=== PATIENT | female | born 1985 | race Caucasian/White ===

== ENCOUNTER → 2022-10-09 09:00 | Outpatient (BNVA) | payer MEDICARE, SELFPAY | PROVIDERS: PCP Nurse Practitioner Family; Visit Provider Nurse Practitioner Family | DX: G43.119 Migraine with aura, intractable, without status migrainosus (principal); G43.109 Migraine with aura, not intractable, without status migrainosus; G47.19 Other hypersomnia; G47.9 Sleep disorder, unspecified; M54.81 Occipital neuralgia | CPT/HCPCS: 99202 ==

== ENCOUNTER 2024-10-14 10:21 | Outpatient (AMB) | payer MEDICARE, SELFPAY ==
--- NOTE | 2024-10-14 10:26 | MHC.OFFVIS ---
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 Intake Note: Fany is a 38 year old left hand dominant female who presents today as a new patient for evaluation of bilateral hand carpal tunnel syndrome. Right hand is worse and is constant. Patient reports numbness and tingling that occurs daily. 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 States at times she has pain at her CMC joint especially when opening a seal jar. Patient states pain is worse in the morning and at night. She [facility] braces, [facility] with good pain relief. Denies any prior injuries or surgeries. EMG done at [facility] 02/01/24. 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 Patient reports that this has been ongoing for several years, and states that she received sections and braces at [facility]. patient did also have an EMG and nerve conduction study done at [facility]. The patient reports that she was seeking a 2nd opinion for h any potential surgery. States that her numbness and tingling is in the median nerve distribution of both hands, and the right bothers her significantly more than the left. No other acute complaints or concerns at this time. [facility] Medical History (Updated 10/14/24 @ 13:10 by RIZWAN Nettles) PAOD (peripheral arterial occlusive disease) Hip dysplasia Arthritis Family history of sleep apnea HTN (hypertension) Bilateral hip dysplasia Surgical History (Updated 10/14/24 @ 10:33 by [facility] H/O arthroscopy of hip History of hip surgery Family History (System 07/03/23 @ 15:00 by Neema Lebron) Father Hypertension Heart disease Mother Migraines Hypertension Sister Migraines Maternal Grandmother Migraines Paternal Grandmother Migraines Social History (Updated 10/14/24 @ 10:33 by ARIANNE Aguilar) Alcohol intake: current Alcohol intake frequency: a few times a month Patient Tobacco Use Status: Never used Tobacco Current occupational status: disabled 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 Good APB muscle firing and good finger cross. Vascular: Capillary refill brisk. ROM: Patient can make a fist and extend all their digits. Skin: No lacerations or abrasions noted. General: No ecchymosis. No erythema or evidence of infection. [] Results Reviewed Results Reviewed: EMG done at [facility] demonstrates mild right and moderate left median neuropathy consistent with carpal tunnel Assessment & Plan Assessment & Plan (1) Bilateral carpal tunnel syndrome: Code(s): G56.03 - Carpal tunnel syndrome, bilateral upper limbs Category: Medical Plan 1. Carpal tunnel syndrome, right Symptoms intermittent, daily, worse at night I educated the patient about the condition. I discussed both operative and nonoperative treatment options. The patient would like to proceed with surgery. The risks and benefits of operative treatment were discussed with the patient and the patient wishes to proceed with surgery. These risks include, but are not limited to, risk of damage to blood vessels, nerves, tendons, infection, recurrence, incomplete relief of preoperative symptoms, persistent pain, possible need for further surgery, and the risks associated with regional blocks and/or anesthesia. Plan is to take the patient to the operating room at some point in the next few weeks for the following procedures: Right carpal tunnel release under local anesthesia All of the preoperative paperwork including the consent was discussed today. All of the patient's questions were answered in the clinic today. The patient understands that they will be in contact with our surgical garment assembler to discuss scheduling their procedure. Patient denies diabetes, blood thinners, asthma, heart issues, lung issues, kidney issues, or current smoking. 2. Carpal tunnel syndrome, left Symptoms intermittent daily, worse at night Patient would like to proceed with operative intervention of the right prior to any intervention of the left Patient is educated that time we can get signed up for left-sided surgery at her postop visit on the right side if it was recovering well Patient was amenable to this plan, state however that she will probably hold off for few weeks in after her neck surgery Patient will follow-up as needed with any acute concerns Medications: Discontinued zolmitriptan max 2 tabs per day or 4 tabs per week Discontinued Reason: No Longer Medically Relevant 5 mg PO Q2H 21 days PRN 12 tabs 3RF migraine headache onabotulinumtoxinA (Botox) inject 155 units IM across forehead, scalp, and neck Discontinued Reason: No Longer Medically Relevant 200 units IM ONCE 12 weeks 1 ea 3RF G43.709 - Chronic migraine without aura, not intractable, without status migrainosus Coding Level of Care Code New Pt Level 4 (48644) Diagnoses Bilateral carpal tunnel syndrome G56.03
[2024-10-14 10:27] VITALS: BMI 31.6
== END 2024-10-14 10:54 | disposition home or self-care (01) ==
PROVIDERS: PCP Nurse Practitioner Family
DX: G56.03 Carpal tunnel syndrome, bilateral upper limbs (principal)
CPT/HCPCS: 99204

== ENCOUNTER → 2024-10-14 10:21 | Outpatient (BNVA) | payer MEDICARE, SELFPAY | PROVIDERS: PCP Nurse Practitioner Family | DX: G56.03 Carpal tunnel syndrome, bilateral upper limbs (principal) | CPT/HCPCS: 99202 ==

== ENCOUNTER 2025-01-09 07:11 | Day surgery (SDC) | payer MEDICARE, SELFPAY ==
[2025-01-09 07:28] VITALS: BMI 31.6
[2025-01-09 07:31] VITALS: BP 147/81; PULSE 76; RESP 16; TEMP 36.8; O2SAT 99
--- NOTE | 2025-01-09 07:54 | MHC.SHP ---
Pre-Procedural Eval Section A - 24 Hr Update-Section A only Date of Service: 01/09/25 The patient is an INPATIENT: No Changes since office visit: No Cold of Flu in the past 2 weeks, No New Medical Problems, No Changes in Medication and No Patient answered all questions The patient has been examined within 24 hours of the surgical procedure. The History & Physical has been completed within 30 days and I have reviewed it.: Yes Section B - Complete if H&P > 30 days Chief Complaint: Carpal tunnel syndrome, right upper limb Allergies: Allergies Allergy/AdvReac Type Severity Reaction Status Date / Time acetaminophen [From Percocet] Allergy Unknown Itching Verified 01/09/25 07:28 adhesive Allergy Unknown Rash Verified 01/09/25 07:28 hydromorphone Allergy Unknown Rash Verified 01/09/25 07:28 nortriptyline Allergy Unknown Unknown Verified 01/09/25 07:28 oxycodone [From Percocet] Allergy Unknown Itching Verified 01/09/25 07:28 topiramate AdvReac Unknown Rash Verified 01/09/25 07:28 Plan Diagnosis/Plan: Unchanged I have reviewed the history and physical and performed a pertinent physical examination on my patient. No changes have occurred unless specified. Time Spent With Patient Time: Total time managing care of this patient today ____ minutes.
--- NOTE | 2025-01-09 07:54 | W.PM.OPN ---
Operative Note Operative Note Date of Service: 01/09/25 Narrative: Preop diagnosis: 1. Right Carpal tunnel syndrome Postop diagnosis: same Procedure: 1. Right Carpal tunnel release Surgeon: Tomasa Etienne MD [employer] Field: None Anesthesia: local block using 1% lidocaine with epinephrine Findings: Thickened transverse carpal ligament. EBL: Less than 5 mL Specimens: None Complications: None Disposition: Brought to recovery room in stable condition Plan: Follow-up for 10-14 days for wound check and suture removal Indications: The patient is 39 years old, with right carpal tunnel syndrome that has been unresponsive to nonoperative management. The risks and benefits of operative treatment including but not limited to risk of damage to blood vessels, nerves, tendons, infection, persistent pain, persistent symptoms, or possible need for additional surgery were discussed with the patient and the patient wishes to proceed with surgery. Procedure: Once consent was obtained a local block was performed using a combination of 1% lidocaine with epinephrine. The patient was then brought back to the operating suite and placed on the operative table in supine position. The right upper extremity was prepped and draped in a standard surgical fashion. Once assured that we had a good block, a 2.0 cm longitudinal incision was made centered over the carpal tunnel. The incision was made through the skin to the subcutaneous tissues using a #15 blade. Dissection was made down to the level of the transverse carpal ligament with care being taken to protect the palmar cutaneous nerve. Once the transverse carpal ligament was clearly visualized, a longitudinal incision was made in the transverse carpal ligament 1st using a #15 blade, then using tenotomy scissors under direct visualization. Care was taken to look for and protect the motor branch of the median nerve when seen in this area. Once satisfied with our carpal tunnel release the wound was copiously irrigated with normal saline and hemostasis was obtained with a brief period of local pressure. The skin edges were reapproximated with some 5.0 nylon suture material and a sterile dressing was applied. The patient appears to have tolerated the procedure well and with no complications. All digits were well vascularized at the conclusion of the case.
--- NOTE | 2025-01-09 09:36 | HO.INF ---
DC VITAL SIGNS: P 69m R 20, BP 124/71, 99% RA. PT GIVEN DC INSTRUCTIONS. PATIENT WITHOUT ISSUES OR PROBLEMS.
== END 2025-01-09 09:30 | disposition home or self-care (01) ==
PROVIDERS: PCP Nurse Practitioner Family; Visit Provider Orthopaedic Surgery
PROC: (CPT 64721; principal; 2025-01-09 08:10)
DX: G56.01 Carpal tunnel syndrome, right upper limb (principal); R20.0 Anesthesia of skin; R20.2 Paresthesia of skin; M18.11 Unilateral primary osteoarthritis of first carpometacarpal joint, right hand; I77.9 Disorder of arteries and arterioles, unspecified; Q65.89 Other specified congenital deformities of hip; G43.709 Chronic migraine without aura, not intractable, without status migrainosus; I10 Essential (primary) hypertension; L23.1 Allergic contact dermatitis due to adhesives; Z88.5 Allergy status to narcotic agent; Z88.8 Allergy status to other drugs, medicaments and biological substances; Z98.890 Other specified postprocedural states
CPT/HCPCS: 64721; J0171; J2003

== ENCOUNTER → 2025-01-09 07:11 | Outpatient (BNV) | payer MEDICARE, SELFPAY | PROVIDERS: PCP Nurse Practitioner Family; Visit Provider Orthopaedic Surgery | DX: G56.01 Carpal tunnel syndrome, right upper limb (principal) | CPT/HCPCS: 64721 ==

== ENCOUNTER 2025-01-23 12:54 | Outpatient (AMB) | payer MEDICARE, SELFPAY ==
[2025-01-23 12:57] VITALS: BMI 31.6
--- NOTE | 2025-01-23 12:57 | A.OFFVIS_ITS ---
Vital Signs 01/23/25 12:57 Height 5 ft 5 in Weight 190 lb BMI 31.6 Intake Visit Reasons: PO RT CTR 01/09/25 AR Intake Note: Fany is a 38 year old left hand dominant female who presents today for a post operative visit s/p right carpal tunnel release DOS: 01/09/[address] Tomasa Etienne. States sypmtoms have completely resolved and would like to sign up for left hand CTR. Allergies acetaminophen [From Percocet] Allergy (Unknown, Verified 01/23/25 13:05) Itching adhesive Allergy (Unknown, Verified 01/23/25 13:05) Rash hydromorphone Allergy (Unknown, Verified 01/23/25 13:05) Rash nortriptyline Allergy (Unknown, Verified 01/23/25 13:05) Unknown oxycodone [From Percocet] Allergy (Unknown, Verified 01/23/25 13:05) Itching topiramate Adverse Reaction (Unknown, Verified 01/23/25 13:05) Rash HPI HPI PO RT CTR 01/09/25 AR: Details: Fany is a 38 year old left hand dominant female who presents today for a post operative visit s/p right carpal tunnel release DOS: 01/09/[address] Tomasa Etienne. Numbness, tingling, pain have completely resolved from right carpal tunnel release, patient reports she is very satisfied with her postoperative course. Patient states she is interested in getting signed up for left-sided carpal tunnel release at this time. No other acute complaints or concerns. [facility] Medical History (Updated 10/14/24 @ 13:10 by RIZWAN Nettles) PAOD (peripheral arterial occlusive disease) Hip dysplasia Arthritis Family history of sleep apnea HTN (hypertension) Bilateral hip dysplasia Surgical History H/O arthroscopy of hip History of hip surgery Family History (System 07/03/23 @ 15:00 by Neema Lebron) Father Hypertension Heart disease Mother Migraines Hypertension Sister Migraines Maternal Grandmother Migraines Paternal Grandmother Migraines Social History Alcohol intake: current Alcohol intake frequency: a few times a month Patient Tobacco Use Status: Never used Tobacco Current occupational status: disabled 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 Good APB muscle firing and good finger cross. Vascular: Capillary refill brisk. ROM: Patient can make a fist and extend all their digits. Skin: Well approximated and healing incision site noted on the volar aspect of the right wrist No lacerations or abrasions noted. General: No ecchymosis. No erythema or evidence of infection. Results Reviewed Results Reviewed: EMG done at [facility] demonstrates mild right and moderate left median neuropathy consistent with carpal tunnel Assessment & Plan Assessment & Plan (1) Bilateral carpal tunnel syndrome: Code(s): G56.03 - Carpal tunnel syndrome, bilateral upper limbs Category: Medical Plan 1. Status post right carpal tunnel release DOS 01/09/2025 Patient appears to be recovering very well postoperatively Patient is educated about the typical recovery course At this time, patient was informed that she will require no acute follow-up with us, as she appears to be recovering very well Patient was amenable to this plan 2. Left carpal tunnel syndrome Symptoms intermittent, daily, worse at night I educated the patient about the condition. I discussed both operative and nonoperative treatment options. The patient would like to proceed with surgery. \ The risks and benefits of operative treatment were discussed with the patient and the patient wishes to proceed with surgery. These risks include, but are not limited to, risk of damage to blood vessels, nerves, tendons, infection, recurrence, incomplete relief of preoperative symptoms, persistent pain, possible need for further surgery, and the risks associated with regional blocks and/or anesthesia. Plan is to take the patient to the operating room at some point in the next few weeks for the following procedures: 1. Left carpal tunnel release under local anesthesia All of the preoperative paperwork including the consent was discussed today. All of the patient's questions were answered in the clinic today. The patient understands that they will be in contact with our assistant professor surgical technology to discuss scheduling their procedure. Patient denies diabetes, blood thinners, asthma, heart issues, lung issues, kidney issues, or current smoking. Coding Level of Care Code Est Pt Level 4 (94037) Diagnoses Bilateral carpal tunnel syndrome G56.03
--- OUTSIDE RECORDS SUMMARY | 2025-01-23 15:18 | XMS_ITS | Data Portability ---
Author Organization [place] - [facility], [facility] Address [address] [place] [address] Assessment Encounter Date Assessment Date Assessment LastModified by Organization Details LastModified Time 01/28/2018 01/28/2018 IMPRESSION: Base d on her clinical examination and history, she likely has a component of hamstring tendinitis after multiple previous hip surgeries. Her pain presentation seems to be extraarticular primarily. She has some mild pain anteriorly with FADIR testing, which could be client service representative of some labral pathology but that seems to be only a minor issue for her. PLAN: I would like her to see Dr. Calvin Berger again for an image-guided hamstring injection. We also provided her with contact information for Dr. Jian Soliman should she need further follow up regarding her hip after her previous GLORIA. She will follow up with us as needed. [email or web address] Not available 02/01/2018 18:36:56 Plan of Treatment Reminders Order Date Submit Date Provider Last Modified By Organization Details Last Modified Time Details Appointments None record ed. Lab None record ed. Referral None record ed. Procedures None record ed. Surgeries None record ed. Imaging None record ed. Medication Orders None record ed. Patient TargetsNo targets recorded. Patient InstructionsNo instructions recorded. Reason for Referral None Reported. Procedures Surgical History Date Name Laterality Status Provider Name and Address Organization Details Recorded Time 8 Other completed Kirk Ruiz [facility] 01/28/2018 14:01:37 6 Orthopaedic Surgery completed Kirk Ruiz [facility] 01/28/2018 14:01:18 5 Orthopaedic Surgery completed Kirk Ruiz [facility] 01/28/2018 14:00:47 2 Orthopaedic Surgery completed Kirk Ruiz [facility] 01/28/2018 14:00:32 Imaging Results None recorded. Procedure Notes None recorded. Medical Equipment None Reported. Allergies Allergen ID Allergen Name Allergen Category Reaction Reaction Severity Criticality Documentation Date Start Date Code Code System Note Provider Name and Address Organization Details Recorded Time 548930 Topamax medicatio n Not available Not available Not available 01/28/2018 79110 3 RxNorm Kirk manzo [facility] 8 13:58:11 Medications Name Sig Start Date Stop Date Status Note LastModified by Organization Details LastModified Time propranolol active Not Available Not A vailable Not Available Imitrex active Not Available Not Avail able Not Available Claritin active Not Available Not Avai lable Not Available Vitals Date Recorded Body height Body mass index (BMI) Body weight Provider Name and Address Organization Details Last Updated DateTime 01/28/2018 165.1 cm 32.4 kg/m2 39432.51 g Kirk Ruiz [facility] 01/28/2018 13:57:55 Social History Question Answer Notes LastModified by Organizat ion Details LastModified Time Tobacco Smoking Status Never Smoker Kirk manzo [facility] 01/28/2018 14:00:12 Auto Related Injury? No Information not available 01/28/2018 Have You Had Cortisone? Yes Information not available 01/28/2018 What Was The Date Of Your Most Recent Tobacco Screening? 01/28/2018 Information n ot available 04/21/2019 Work Related Injury? No Information not available 01/28/2018 Sex: Unknown Functional Status Question Answer Note LastModified by Organizat ion Details LastModified Time What is your exercise level? Occasional Information not available 01/28/2018 Mental Status None recorded. Family History Nothing Reported. Medical History Condition Response Blood Clots / Phlebitis N Heart Problems N HIV or AIDS N Depression or Anxiety N High Blood Pressure N Irregular Heartbeat N MRSA N Emphysema / Chronic Bronchitis N Any Other Significant Medical Issues N Reaction to General/Local Anesthesia N Weight Gain / Loss N Hepatitis / Jaundice N Kidney / Bladder Infections N Diabetes N Bleeding Disorder N Hearing Loss N Angina, Heart Failure or Attack N Night Sweats N Seizures / Epilepsy N Osteoarthritis / Rheumatoid arthritis / Other N Cancer N Stroke N Chemical Dependency / Alcoholism N Ulcer / Stomach Bleeding / Indigestion N Visual Loss or Glaucoma N Psoriasis / Skin Rash N Thyroid Disorder N Heart Disease N Asthma / Shortness of Breath / Sleep Engraver Ornamental Design ea (please specify) N Pulmonary Embolism N Gynecological HistoryNo gynecological history recorded. Obstetrics History GPAL:G 0 P 0 0 0 0 Past Encounters Encounter ID Performer Location Encounter Start Date Encounter Closed Date Diagnosis/Indication Diagnosis SNOMED-CT Code Diagnosis ICD10 Code Diagnosis Note [id number] MISAEL LANDAVERDE MD [address] [phone] 01/28/2018 13:25:57 01/28/2018 14:57:49 Complete tear, hip ligament 604168772 S73.191D Health Concerns Section Related Observation LastModified by Organization Detai ls LastModified Time None Recorded Concern Status LastModified by Organization Details LastModified Time None Recorded Advance Directives Directive None Recorded Payers Encounter Date Sequence Insurance Name Policy Number Policy Fleming Covered Member ID Fleming Member ID Guarantor Name 01/28/2018 1 [place] [employer] Fany Rubin [id number] Fany Silva Rubin 01/28/2018 2 [place] [facility] Fany Silva Rubin [id number] Fany Silva Rubin Notes Date Note Type Note Provider Name and Address Organization Details Recorded Time 01/28/2018 text/html CHIEF COMPLAINT: Right posterior hip pain. HISTORY: Fany is a very pleasant 32-year-old lady presenting to our practice for another opinion regarding her right hip. She has a history of bilateral hip dysplasia She had a right hip arthroscopy with Dr. Rahul Reyes in May 2012 and then a right and subsequently a left hip arthroscopy by Dr. Richard Caro at [facility] in November 2014. This was followed by a periacetabular osteotomy in May 2016 at [facility] with [address]. Kirk King. Overall she had some improvement of her deep seated anterior groin pain and GLORIA. She currently complains primarily of posterior hip pain. She has seen Dr. Young? Donnie españa multiple times and had multiple injections periarticularly. Apparently she did not have a hamstring injection to this point. MISAEL LANDAVERDE MD [address] [place] [address], [id number], [facility] - [facility] 02/02/2018 08:09:33 OBGyn Episode No OBEpisode recorded.
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
== END 2025-01-23 13:48 | disposition home or self-care (01) ==
LOC: HO.HOS 12:55
PROVIDERS: PCP Nurse Practitioner Family
DX: G56.03 Carpal tunnel syndrome, bilateral upper limbs (principal)
CPT/HCPCS: 99214

== ENCOUNTER → 2025-01-23 12:54 | Outpatient (BNVA) | payer MEDICARE, SELFPAY | PROVIDERS: PCP Nurse Practitioner Family | DX: G56.02 Carpal tunnel syndrome, left upper limb (principal); Z48.811 Encounter for surgical aftercare following surgery on the nervous system; Z98.890 Other specified postprocedural states | CPT/HCPCS: 99212 ==

== ENCOUNTER 2025-02-16 12:29 | Day surgery (SDC) | payer MEDICARE, SELFPAY ==
[2025-02-16 12:54] VITALS: BP 142/84; PULSE 74; RESP 14; TEMP 36.8; O2SAT 95; BMI 33.0
--- NOTE | 2025-02-16 14:49 | MHC.SHP ---
Pre-Procedural Eval Section A - 24 Hr Update-Section A only Date of Service: 02/16/25 The patient is an INPATIENT: No Changes since office visit: No Cold of Flu in the past 2 weeks, No New Medical Problems, No Changes in Medication and No Patient answered all questions The patient has been examined within 24 hours of the surgical procedure. The History & Physical has been completed within 30 days and I have reviewed it.: Yes Section B - Complete if H&P > 30 days Chief Complaint: Carpal tunnel syndrome, left upper limb Allergies: Allergies Allergy/AdvReac Type Severity Reaction Status Date / Time acetaminophen [From Percocet] Allergy Unknown Itching Verified 02/16/25 12:53 adhesive Allergy Unknown Rash Verified 02/16/25 12:53 hydromorphone Allergy Unknown Rash Verified 02/16/25 12:53 nortriptyline Allergy Unknown Unknown Verified 02/16/25 12:53 oxycodone [From Percocet] Allergy Unknown Itching Verified 02/16/25 12:53 topiramate AdvReac Unknown Rash Verified 02/16/25 12:53 Plan Diagnosis/Plan: Unchanged I have reviewed the history and physical and performed a pertinent physical examination on my patient. No changes have occurred unless specified. Time Spent With Patient Time: Total time managing care of this patient today ____ minutes.
--- NOTE | 2025-02-16 14:50 | W.PM.OPN ---
Operative Note Operative Note Date of Service: 02/16/25 Narrative: Preop diagnosis: 1. Left Carpal tunnel syndrome Postop diagnosis: same Procedure: 1. Left Carpal tunnel release Surgeon: Tomasa Etienne MD Photographic Laboratory Technician: Shayan ASTORGA Anesthesia: local block using 1% lidocaine with epinephrine Findings: Thickened transverse carpal ligament. EBL: Less than 5 mL Specimens: None Complications: None Disposition: Brought to recovery room in stable condition Plan: Follow-up for 10-14 days for wound check and suture removal Indications: The patient is 39 years old, with left carpal tunnel syndrome that has been unresponsive to nonoperative management. The risks and benefits of operative treatment including but not limited to risk of damage to blood vessels, nerves, tendons, infection, persistent pain, persistent symptoms, or possible need for additional surgery were discussed with the patient and the patient wishes to proceed with surgery. Procedure: Once consent was obtained a local block was performed using a combination of 1% lidocaine with epinephrine. The patient was then brought back to the operating suite and placed on the operative table in supine position. The left upper extremity was prepped and draped in a standard surgical fashion. Once assured that we had a good block, a 2.0 cm longitudinal incision was made centered over the carpal tunnel. The incision was made through the skin to the subcutaneous tissues using a #15 blade. Dissection was made down to the level of the transverse carpal ligament with care being taken to protect the palmar cutaneous nerve. Once the transverse carpal ligament was clearly visualized, a longitudinal incision was made in the transverse carpal ligament 1st using a #15 blade, then using tenotomy scissors under direct visualization. Care was taken to look for and protect the motor branch of the median nerve when seen in this area. Once satisfied with our carpal tunnel release the wound was copiously irrigated with normal saline and hemostasis was obtained with a brief period of local pressure. The skin edges were reapproximated with some 5.0 nylon suture material and a sterile dressing was applied. The patient appears to have tolerated the procedure well and with no complications. All digits were well vascularized at the conclusion of the case.
[2025-02-16 15:12] VITALS: BP 148/88; PULSE 72; RESP 18; O2SAT 98
== END 2025-02-16 15:26 | disposition home or self-care (01) ==
LOC: HO.SSS 12:30
PROVIDERS: PCP Nurse Practitioner Family; Visit Provider Orthopaedic Surgery
PROC: (CPT 64721; principal; 2025-02-16 13:50)
DX: G56.02 Carpal tunnel syndrome, left upper limb (principal); I10 Essential (primary) hypertension; M19.90 Unspecified osteoarthritis, unspecified site; Q65.89 Other specified congenital deformities of hip; I77.9 Disorder of arteries and arterioles, unspecified; Z88.5 Allergy status to narcotic agent; Z88.8 Allergy status to other drugs, medicaments and biological substances; L23.1 Allergic contact dermatitis due to adhesives; Z98.890 Other specified postprocedural states
CPT/HCPCS: 64721; J0171; J2003; J2004

== ENCOUNTER → 2025-02-16 12:29 | Outpatient (BNV) | payer MEDICARE, SELFPAY | PROVIDERS: PCP Nurse Practitioner Family; Visit Provider Orthopaedic Surgery | DX: G56.02 Carpal tunnel syndrome, left upper limb (principal) | CPT/HCPCS: 64721 ==

== ENCOUNTER 2025-03-03 14:13 | Outpatient (AMB) | payer MEDICARE, SELFPAY ==
--- NOTE | 2025-03-03 14:14 | A.OFFVIS_ITS ---
Vital Signs 03/03/25 14:18 Height 5 ft 5 in Weight 190 lb BMI 31.6 Handedness Left Intake Visit Reasons: PO LT CTR 02/16/25 AR Intake Note: Fany is a 39 year old left hand dominant female who presents today post operatively s/p left carpal tunnel release DOS: 02/16/[address] Tomasa Etienne. Patient reports in the beginning of this week she had a fall and landed on her left hand palm. She has her right CTR done and states the incion on her left hand feels alot more tender than the right did. States Dr Etienne did inform her the tendon was a lot tighter than the right hand in surgery. Allergies acetaminophen [From Percocet] Allergy (Unknown, Verified 03/03/25 14:17) Itching adhesive Allergy (Unknown, Verified 03/03/25 14:17) Rash hydromorphone Allergy (Unknown, Verified 03/03/25 14:17) Rash nortriptyline Allergy (Unknown, Verified 03/03/25 14:17) Unknown oxycodone [From Percocet] Allergy (Unknown, Verified 03/03/25 14:17) Itching topiramate Adverse Reaction (Unknown, Verified 03/03/25 14:17) Rash HPI HPI PO LT CTR 02/16/25 AR: Details: Ms. Rubin is a 39-year-old right-hand dominant female who presents to the office today status post left carpal tunnel release performed on 02/16/[address] Etienne. Patient reports that earlier this week she fell with an outstretched hand onto the operative site. She reports that she had her right CTR performed in the past and states that this incision site is more sensitive than the other. Dr. Etienne explained to the patient postoperatively that the tendon was more tight than the opposite side likely attributing to her increase in sensitivity. [facility] Medical History (Updated 10/14/24 @ 13:10 by RIZWAN Nettles) PAOD (peripheral arterial occlusive disease) Hip dysplasia Arthritis Family history of sleep apnea HTN (hypertension) Bilateral hip dysplasia Surgical History H/O arthroscopy of hip History of hip surgery Family History (System 07/03/23 @ 15:00 by Neema Lebron) Father Hypertension Heart disease Mother Migraines Hypertension Sister Migraines Maternal Grandmother Migraines Paternal Grandmother Migraines Social History Are you a primary associate director career services to a significant other at home: No Alcohol intake: current Alcohol intake frequency: holidays/special occasions only Patient Tobacco Use Status: Never used Tobacco Current occupational status: disabled 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 Sutures intact. No surrounding erythema or drainage. No signs of infection. Patient reports that there is some numbness surrounding the incision site. She reports that the numbness and tingling has completely resolved at night. She has some mild soreness surrounding the incision site. She has full range of motion with wrist flexion, extension, ulnar and radial deviation. Cap refill brisk. Assessment & Plan Assessment & Plan (1) Bilateral carpal tunnel syndrome: Code(s): G56.03 - Carpal tunnel syndrome, bilateral upper limbs Category: Medical Plan Ms. Rubin is a 39-year-old right-hand dominant female who presents to the office today status post left carpal tunnel release performed on 02/16/[address] Etienne. Patient reports that earlier this week she fell with an outstretched hand onto the operative site. She reports that she had her right CTR performed in the past and states that this incision site is more sensitive than the other. Dr. Etienne explained to the patient postoperatively that the tendon was more tight than the opposite side likely attributing to her increase in sensitivity. While in the office today, sutures are removed and Steri-Strips were applied. Patient was educated that they should not perform any dish washing, hot tub, swimming or submerging under water for 2 weeks. No heavy lifting x4 weeks. Overall the patient is doing very well so occupational therapy was deferred at this time she will follow up in 2 weeks with Shayan John PA-C to follow up on the numbness surrounding the incision site, sooner if needed. Coding Level of Care Code Global (93635) Diagnoses Bilateral carpal tunnel syndrome G56.03
--- OUTSIDE RECORDS SUMMARY | 2025-03-03 14:15 | XMS_ITS | Data Portability ---
Author Organization [place] - [facility] Address [address] [place] [address] Assessment Encounter Date Assessment Date Assessment LastModified by Organization Details LastModified Time 01/28/2018 01/28/2018 IMPRESSION: Base d on her clinical examination and history, she likely has a component of hamstring tendinitis after multiple previous hip surgeries. Her pain presentation seems to be extraarticular primarily. She has some mild pain anteriorly with FADIR testing, which could be insurance healthcare representative of some labral pathology but that [...] Recorded Time 8 Other completed Kirk Ruiz [facility] 01/28/2018 14:01:37 6 Orthopaedic Surgery completed Kirk Ruiz [facility] 01/28/2018 14:01:18 5 Orthopaedic Surgery completed Kirk Ruiz [facility] 01/28/2018 14:00:47 2 Orthopaedic Surgery completed Kirk Ruiz [facility] 01/28/2018 14:00:32 Imaging Results None recorded. Procedure Notes None recorded. Medical Equipment None Reported. Allergies Allergen ID Allergen Name Allergen Category Reaction Reaction Severity Criticality Documentation Date Start Date Code Code System Note Provider Name and Address Organization Details Recorded Time 283142 Topamax medicatio n Not available Not available Not available 01/28/2018 83626 3 RxNorm Kirk manzo [facility] 8 13:58:11 Medications Name Sig Start Date [...] Updated DateTime 01/28/2018 165.1 cm 32.4 kg/m2 11892.51 g Kirk Ruiz [facility] 01/28/2018 13:57:55 Social History Question Answer Notes LastModified by Organizat ion Details LastModified Time Tobacco Smoking Status Never Smoker Kirk manzo [facility] 01/28/2018 14:00:12 Auto Related Injury? No Information [...] History Nothing Reported. Medical History Condition Response HIV or AIDS N High Blood Pressure N Irregular Heartbeat N MRSA N Any Other Significant Medical Issues N Weight Gain / Loss N Hearing Loss N Angina, Heart Failure or Attack N Night Sweats N Seizures / Epilepsy N Osteoarthritis / Rheumatoid arthritis / Other N Cancer N Stroke N Ulcer / Stomach Bleeding / Indigestion N Visual Loss or Glaucoma N Blood Clots / Phlebitis N Heart Problems N Depression or Anxiety N Emphysema / Chronic Bronchitis N Reaction to General/Local Anesthesia N Hepatitis / Jaundice N Kidney / Bladder Infections N Diabetes N Bleeding Disorder N Chemical Dependency / Alcoholism N Psoriasis / Skin Rash N Thyroid Disorder N Heart Disease N Asthma / Shortness of Breath / Sleep Stock Analyst ea (please specify) N Pulmonary Embolism N Gynecological HistoryNo gynecological history recorded. Obstetrics History GPAL:G 0 P 0 0 0 0 Past Encounters Encounter ID Performer Location Encounter Start Date Encounter Closed Date Diagnosis/Indication Diagnosis SNOMED-CT Code Diagnosis ICD10 Code Diagnosis Note [id number] MISAEL LANDAVERDE MD [address] [address] 01/28/2018 13:25:57 01/28/2018 14:57:49 Complete tear, hip ligament 299456165 S73.191D Health Concerns Section Related Observation LastModified by Organization Detai ls LastModified Time None Recorded Concern Status LastModified by Organization Details LastModified Time None Recorded Advance Directives Directive None Recorded Payers Insurance Date Sequence Insurance Name Policy Number Policy Fleming Covered Member ID Fleming Member ID Guarantor Name 01/26/2018 1 [place] [employer] Fnay Rubin [id number] Fany Silva Rubin 01/26/2018 2 [place] [facility] Fany Silva Rubin [id number] Fany Silva Rubin Notes Date Note Type [...] hip arthroscopy by Dr. Richard Caro at [facility] in November 2014. This was followed by a periacetabular osteotomy in May 2016 at [facility] with Dr. Kirk King. Overall she had some improvement of her deep seated anterior groin pain and GLORIA. She currently complains primarily of posterior hip pain. She has seen Dr. Young? Donnie españa multiple times and had multiple injections periarticularly. Apparently she did not have a hamstring injection to this point. MISAEL LANDAVERDE MD [address] [place] [address], [id number], [facility] - [facility] 02/02/2018 08:09:33 OBGyn Episode No OBEpisode recorded.
[2025-03-03 14:18] VITALS: BMI 31.6
== END 2025-03-03 14:34 | disposition home or self-care (01) ==
LOC: HO.HOS 14:13
PROVIDERS: Absent Provider Physician Assistant; PCP Nurse Practitioner Family
DX: G56.03 Carpal tunnel syndrome, bilateral upper limbs (principal)
CPT/HCPCS: 99024

== ENCOUNTER → 2025-03-03 14:13 | Outpatient (BNVA) | payer MEDICARE, SELFPAY | PROVIDERS: Absent Provider Physician Assistant; PCP Nurse Practitioner Family | DX: G56.03 Carpal tunnel syndrome, bilateral upper limbs (principal) | CPT/HCPCS: 99212 ==

== ENCOUNTER 2025-03-20 11:10 | Outpatient (AMB) | payer MEDICARE, SELFPAY ==
[2025-03-20 11:12] VITALS: BMI 31.6
--- NOTE | 2025-03-20 11:12 | A.OFFVIS_ITS ---
Vital Signs 03/20/25 11:12 Height 5 ft 5 in Weight 190 lb BMI 31.6 Intake Visit Reasons: PO LT CTR 02/16/25 Intake Note: Fany is a 39 year old left hand dominant female who presents today for a post operative visit status post left carpal tunnel release DOS: 02/16/[address] Tomasa Etienne. States she continues to have numbness around her incision. Allergies acetaminophen (From Percocet) Allergy (Unknown, Verified 03/20/25 11:12) Itching adhesive Allergy (Unknown, Verified 03/20/25 11:12) Rash hydromorphone Allergy (Unknown, Verified 03/20/25 11:12) Rash nortriptyline Allergy (Unknown, Verified 03/20/25 11:12) Unknown oxycodone (From Percocet) Allergy (Unknown, Verified 03/20/25 11:12) Itching topiramate Adverse Reaction (Unknown, Verified 03/20/25 11:12) Rash HPI HPI PO LT CTR 02/16/25: Details: Fany is a 39 year old left hand dominant female who presents today for a post operative visit status post left carpal tunnel release DOS: 02/16/[address] Tomasa Etienne. States she continues to have numbness around her incision. Patient reports that this numbness has been constant since surgery. The patient does report that her numbness and tingling in her more distal hand and fingers has resolved since surgery. Of note, the patient also reports some minor discomfort just proximal to the incision site, and states that there is a hardened area of tissue under the skin that she feels is consistent with scar tissue. No other acute complaints or concerns at this time. ON LICENSE OF [facility] Medical History (Updated 10/14/24 @ 13:10 by RIZWAN Nettles) PAOD (peripheral arterial occlusive disease) Hip dysplasia Arthritis Family history of sleep apnea HTN (hypertension) Bilateral hip dysplasia Surgical History H/O arthroscopy of hip History of hip surgery Family History (System 07/03/23 @ 15:00 by Neema Lebron) Father Hypertension Heart disease Mother Migraines Hypertension Sister Migraines Maternal Grandmother Migraines Paternal Grandmother Migraines Social History Are you a primary pediatric care coordinator to a significant other at home: No Alcohol intake: current Alcohol intake frequency: holidays/special occasions only Patient Tobacco Use Status: Never used Tobacco Current occupational status: disabled 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 No surrounding erythema or drainage. No signs of infection. Patient reports that there is some numbness surrounding the incision site. She reports that the numbness and tingling has completely resolved at night. No further soreness surrounding the incision site, however there is noted to be a small area consistent with scar tissue just proximal to the incision site.. She has full range of motion with wrist flexion, extension, ulnar and radial deviation. Cap refill brisk. Assessment & Plan Assessment & Plan (1) Bilateral carpal tunnel syndrome: Code(s): G56.03 - Carpal tunnel syndrome, bilateral upper limbs Category: Medical Plan 1. Status post left carpal tunnel release DOS 02/16/2025 Patient appears to be recovering well postoperatively Patient is educated about the typical recovery course At this time, patient is educated that carpal tunnel release and any surgery can result in damage to the superficial nerves directly surrounding the incision site, and this can lead to numbness at the surgery site that may or may not resolve Patient is also educated that the surgery does go proximal to the incision site under the skin, and that scar tissue can form there, and with time the scar tissue will likely decrease in size and sensitivity Patient is educated on a home exercise hypersensitivity Patient understands this in his amenable to all plans Follow-up as needed Coding Level of Care Code Global (55545) Diagnoses Bilateral carpal tunnel syndrome G56.03
--- OUTSIDE RECORDS SUMMARY | 2025-03-20 12:45 | XMS_ITS | Data Portability ---
Author Organization [place] - [facility] [place] [facility], [facility] - [facility] Address [address] [place] [address] Assessment Encounter Date Assessment Date Assessment LastModified by Organization Details LastModified Time 01/28/2018 01/28/2018 IMPRESSION: Base d on her clinical examination and history, she likely has a component of hamstring tendinitis after multiple previous hip surgeries. Her pain presentation seems to be extraarticular primarily. She has some mild pain anteriorly with FADIR testing, which could be key account representative of some labral pathology but that [...] Recorded Time 8 Other completed Kirk Ruiz [facility] [place] 01/28/2018 14:01:37 6 Orthopaedic Surgery completed Kirk Ruiz [facility] [place] 01/28/2018 14:01:18 5 Orthopaedic Surgery completed Kirk Ruiz [facility] [place] 01/28/2018 14:00:47 2 Orthopaedic Surgery completed Kirk Ruiz [facility] [place] 01/28/2018 14:00:32 Imaging Results None recorded. Procedure Notes None recorded. Medical Equipment None Reported. Allergies Allergen ID Allergen Name Allergen Category Reaction Reaction Severity Criticality Documentation Date Start Date Code Code System Note Provider Name and Address Organization Details Recorded Time 938738 Topamax medicatio n Not available Not available Not available 01/28/2018 54788 3 RxNorm Kirk manzo [facility] [place] 8 13:58:11 Medications Name Sig Start Date [...] Updated DateTime 01/28/2018 165.1 cm 32.4 kg/m2 61902.51 g Kirk Ruiz [facility] [place] 01/28/2018 13:57:55 Social History Question Answer Notes LastModified by Organizat ion Details LastModified Time Tobacco Smoking Status Never Smoker Kirk manzo [facility] [place] [facility] 01/28/2018 14:00:12 Auto Related Injury? 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 Obstetrics History GPAL:G 0 P 0 0 0 0 Past Encounters Encounter ID Performer Location Encounter Start Date Encounter Closed Date Diagnosis/Indication Diagnosis SNOMED-CT Code Diagnosis ICD10 Code Diagnosis Note [id number] MISAEL LANDAVERDE MD [address] [address] 01/28/2018 13:25:57 01/28/2018 14:57:49 Complete tear, hip ligament [id number] S73.191D Health Concerns Section Related Observation LastModified by Organization Detai ls LastModified Time None Recorded Concern Status LastModified by Organization Details LastModified Time None Recorded Advance Directives Directive None Recorded Payers Insurance Date Sequence Insurance Name Policy Number Policy Fleming Covered Member ID Fleming Member ID Guarantor Name 01/26/2018 1 [place] [employer] Fany Rubin [id number] Fany Rubin 01/26/2018 2 [place] [facility] Fany Rubin [id number] Fany Rubin Notes Date Note Type Note [...] hip arthroscopy by Dr. Richard Caro at [facility] in November 2014. This was followed by a periacetabular osteotomy in May 2016 at [facility] with Dr. Kirk King. Overall she had some improvement of her deep seated anterior groin pain and GLORIA. She currently complains primarily of posterior hip pain. She has seen Dr. Hannah Rdz multiple times and had multiple injections periarticularly. Apparently she did not have a hamstring injection to this point. MISAEL LANDAVERDE MD [address] [place] [address], [phone], [facility] - [facility] [place] [facility] 02/02/2018 08:09:33 OBGyn Episode No OBEpisode recorded.
== END 2025-03-20 11:19 | disposition home or self-care (01) ==
LOC: HO.HOS 11:10
PROVIDERS: PCP Nurse Practitioner Family
DX: G56.03 Carpal tunnel syndrome, bilateral upper limbs (principal)
CPT/HCPCS: 99024

== ENCOUNTER → 2025-03-20 11:10 | Outpatient (BNVA) | payer MEDICARE, SELFPAY | PROVIDERS: PCP Nurse Practitioner Family | DX: G56.03 Carpal tunnel syndrome, bilateral upper limbs (principal) | CPT/HCPCS: 99212 ==

== ENCOUNTER 2025-07-03 07:58 | Outpatient (REF) | payer MEDICARE, SELFPAY ==
--- NOTE | ~2025-07-03 | XR_ITS ---
EXAMINATION: XR HIP 2 OR MORE VIEWS BILATERAL HISTORY: M25.559 - Pain in unspecified hip COMPARISON: There are no prior studies available for comparison. FINDINGS: A single AP view of the pelvis and two views of each hip are submitted. Osseous mineralization is normal. There is no fracture or dislocation. The hip joint spaces are maintained. There is degenerative change and sclerosis of the right sacroiliac joint. There are metallic densities adjacent to the right iliac wing. 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 Metallic densities adjacent to the right iliac lung of uncertain significance. Electronically signed by: Obed Mccarthy MD 07/03/2025 11:00 AM EDT
--- OUTSIDE RECORDS SUMMARY | 2025-07-04 08:05 | XMS_ITS | Encounter Summary ---
Author Organization [facility] Address [address] [facility] [address] [place] [address] Phone Care Team Providers Care Medical Aide Name Role Phone James Robb MD Unavailable [phone] Clover Mora NP Primary Care Provid er Encounter Details Date Type Department Care Team (Late st Contact Info) Description 07/23/2020 Ancillary Orders [facility] [address] [place] [address] Barry Yañez MD [address] [facility], [address] [place] [address] [email or web address] Breast pain, left Social History Tobacco Use Types Packs/Day Years Used Date Smoking Tobacco: Never Smokeless Tobacco: Never Alcohol Use Standard Drinks/Week Comments Yes 0 (1 standard drink = 0.6 oz pur e alcohol) Comments No Sex and Gender Information Value Date Recorded Sex Assigned at Female 07/15/2020 2:05 PM EDT Legal Sex Female 7:30 PM EST Gender Identity Female 07/15/2020 2:05 PM EDT Sexual Orientation Straight 07/15/2020 2: 05 PM EDT documented as of this encounter Plan of Treatment Upcoming Encounters Date Type Department Care Team (Late Contact Info) Description 07/17/2025 11:00 AM EDT Office Visit [facility] Neu[facility] [address] [place] [address] Karin Payne FNP [address] [facility], 2nd [place] [address] documented as of this encounter Results * BI MAMMOGRAM DIAGNOSTIC WITH TOMOSYNTHESIS WITH CAD (BILATERAL) (08/15/2020 1:12 PM EST) Anatomical Region Laterality Modality Breast Left, Breast Right, Breast Bilateral Bila teral Mammography 08/15/2020 1:21 PM EST Impressions 08/15/2020 2:03 PM EST No imaging findings suspicious for malignancy. Clinical follow-up recommended. The results were given to the patient by the technologist at the time of the examination. BI-RADS CATEGORY: 1 - Negative. DENSITY: There are scattered fibroglandular densities. Narrative 08/15/2020 2:03 PM EST HISTORY: Adjacent small palpable lumps in lateral aspect of left breast. EXAMS: Bilateral diagnostic mammogram with tomosynthesis and CAD, left breast ultrasound. COMPARISON: No prior studies for comparison. This is a baseline mammogram. FINDINGS: No suspicious masses or evidence of architectural distortion. No suspicious microcalcifications. Ultrasound scanning is performed of the outer left breast over areas of palpable lumps. No sonographic abnormalities demonstrated. Procedure Note Daryl Calderon MD - 08/15/2020 HISTORY: Adjacent small palpable lumps in lateral aspect of leftbreast. EXAMS: Bilateral diagnostic mammogram with tomosynthesis and CAD, leftbreast ultrasound. COMPARISON: No prior studies for comparison. This is a baselinemammogram. FINDINGS: No suspicious masses or evidence of architectural distortion. Nosuspicious microcalcifications. Ultrasound scanning is performed of the outer left breast over areas ofpalpable lumps. No sonographic abnormalities demonstrated. IMPRESSION: No imaging findings suspicious for malignancy. Clinical follow-uprecommended. The results were given to the patient by the technologist at the time ofthe examination. BI-RADS CATEGORY: 1 - Negative. DENSITY: There are scattered fibroglandular densities. Barry Yañez MD IMG MG EXAMS Final Result documented in this encounter Visit Diagnoses Diagnosis Breast pain, left Breast pain, left documented in this encounter Care Teams Medical Aide Relationship Specialty Start Date End Date Clover Mora NP [address] [place] [address] [email or web address] PCP - General Family Medicine 07/17/20 James Robb MD 12/07/18 documented as of this encounter Additional Source Comments The information contained in this document represents components of the legal health record. It is not the complete legal health record.[facility]
--- OUTSIDE RECORDS SUMMARY | 2025-07-04 08:06 | XMS_ITS | Encounter Summary ---
Author Organization [facility] Address [address] [place] [address] Phone Care Team Providers Care Greenskeeper Supervisor Name Role Phone Sharon Cervantes WOOD BARKER Primary Care Provider James Robb MD Unavailable [phone] Clover Mora NP Primary Care Provid er Encounter Details Date Type Department Care Team (Late st Contact Info) Description 12/05/2019 Ophth Exam VAL Consult from [address] [address] Cecelia Mcadams MD [email or web address] Social History Tobacco Use Types Packs/Day Years [...] Encounters Date Type Department Care Team (Late st Contact Info) Description 07/17/2025 11:00 AM EDT Office [facility] [address] [place] [address] Karin Payne, JUAN [address] [facility], 2nd [place] [address] [email or web address] documented as of this encounter Visit Diagnoses Not on filedocumented in this encounter Care Teams Greenskeeper Supervisor Relationship Specialty Start Date End Date Sharon Cervantes NP [address] [place] [address] [email or web address] PCP - General Family Medicine 12/07/18 07/16/20 Clover Mora NP [address] [place] [address] [email or web address] PCP - General Family Medicine 07/17/20 James Robb MD [address] [place] [address] 12/07/18 documented as of this encounter Additional Source Comments The information contained in this document represents components of the legal health record. It is not the complete legal health record.[facility]
--- OUTSIDE RECORDS SUMMARY | 2025-07-04 08:06 | XMS_ITS | Encounter Summary ---
Author Organization [facility] Address [address] [place] [address] Phone Care Team Providers Care Sports Doctor Name Role Phone James Robb MD Unavailable [phone] Clover Mora NP Primary Care Provid er Encounter Details Date Type Department Care Team (Late st Contact Info) Description 07/17/2020 Procedure Pass [address] [address] Social History Tobacco Use Types Packs/Day Years [...] Description 07/17/2025 11:00 AM EDT Office Visit [facility] Neurology [address] [place] [address] Karin Payne FNP [address] [facility], 2nd [place] [address] documented as of this encounter Visit Diagnoses Not on filedocumented in this encounter Care Teams Sports Doctor Relationship Specialty Start Date End Date Clover Mora NP [address] [place] [address] [email or web address] PCP - General Family Medicine 07/17/20 James Robb MD 12/07/18 documented as of this encounter Additional Source Comments The information contained in this document represents components of the legal health record. It is not the complete legal health record.[facility]
--- OUTSIDE RECORDS SUMMARY | 2025-07-04 08:07 | XMS_ITS | Clinical Summary ---
Author Organization [facility] Address [address] [place], [place] [id number] Phone Care Team Providers Care Manager General Name Role Phone James Robb MD Unavailable [phone] Clover Mora NP Primary Care Provid er Allergies Active Allergy Reactions Criticality Noted Date Comments Adhesive Rash 08/30/2012 Hydromorphone Rash 08/30/2012 Nortriptyline 10/21/2021 Pt. reported Oxycodone-Acetaminophen Itching Medium 08/25/2018 Reports Oxycodone tolerated no adverse reaction Topiramate Rash Low 12/09/2018 Other reaction(s): Disorientated Medications labetaloL (TRANDATE) 200 MG tablet Take 200 mg by mouth nightly at bedtime. 1 Active acetaminophen (TYLENOL) 500 mg capsule Take by mouth as needed for fever. Active SUMAtriptan (IMITREX) 100 MG tabletIndications:I ntractable migraine with aura with status migrainosus Take a half or whole tablet (50 or 100 mg) by mouth once as needed for migraine. Can repeat dose in 2 hours if needed. Do not exceed 2 doses in a 24 hour period. Max dose 200mg/ day. 9 tablet 11 5 Active ondansetron (ZOFRAN-ODT) 4 MG disintegrating tabletIndications:I ntractable migraine with aura with status migrainosus Take 1 tablet (4 mg total) by mouth every 8 (eight) hours as needed for nausea. 30 tablet 3 5 Active venlafaxine (EFFEXOR-XR) 37.5 MG 24 hr capsuleIndications: Intractable migraine with aura with status migrainosus,Cervico -occipital neuralgia of right side Take 1 capsule (37.5 mg total) by mouth daily. 90 capsule 1 5 Active Active Problems Problem Noted Date Diagnosed Date Headache 12/05/2019 Bulge of cervical disc without myelopathy 2019 Acute pain of both knees 06/28/2019 Occipital neuralgia of right side 06/28/2019 Acute pain of right shoulder 03/25/2019 Primary osteoarthritis of both hips 02/22/2019 PCOS (polycystic ovarian syndrome) 01/26/2019 Assessment & Plan (11/23/2019 11:42 AM EST): She is now having regular periods on POP's and she also continues with the Metformin. I think that it is reasonable to consider both. She has asked me to refill her Metformin when it becomes necessary as her PCP will be leaving the group she is with. I agreed to prescribe it at that point. Sprain of hip 10/13/2012 Overview (11/18/2014): Sprain of hip Uncoded hip labrum tear 07/07/2012 Overview (11/18/2014): hip labrum tear Encounters Date Type Department Care Team Description 05/22/2025 1:30 PM EDT Telemedicine - audio only [facility] Neurology [address] [place] [address] Karin Payne FNP Intractable migraine with aura with status migrainosus (Primary Dx) from Last 3 Months Immunizations Immunization Administration Dates Next Due Influenza, Unspecified Formulation 06/25/2016 Family History Medical History Relation Comments Hyperlipidemia Father Hypertension Father Urolithiasis Father Parkinson's disease Maternal Grandfather No Known Problems Maternal Grandmother Hypertension Mother No Known Problems Paternal Grandfather Lymphoma Paternal Grandmother Relation Status Comments Father Maternal Grandfather Maternal Grandmother Alive Mother Paternal Grandfather Paternal Grandmother Social History Tobacco Use Types Packs/Day Years Used Date Smoking Tobacco: Never Smokeless Tobacco: Never Alcohol Use Standard Drinks/Week Comments Yes 0 (1 standard drink = 0.6 oz pur e alcohol) Education Answer Date Recorded Are you interested in more education? Not on jeanne e 01/22/2023 Are you concerned about learning? Not on file 01/22/2023 No 01/22/2023 No 01/22/2023 Digital Access Answer Date Recorded No 02/23/2023 No 02/23/2023 Reliable internet access at home? Not on file 02/23/2023 Device with a working camera? Not on file Comments No Sex and Gender Information Value Date Recorded Sex Assigned at Female 07/15/2020 2:05 PM EDT Legal Sex Female 7:30 PM EST Gender Identity Female 07/15/2020 2:05 PM EDT Sexual Orientation Straight 07/15/2020 2: 05 PM EDT Last Filed Vital Signs Vital Sign Reading Time Taken Comments Blood Pressure 113/78 07/01/2022 9:12 AM EDT Pulse 81 12/06/2019 12:27 PM EDT Temperature 36.4 C (97.5 F) 12/06/2019 12:27 PM EDT Respiratory Rate 14 12/06/2019 9:58 AM EDT Oxygen Saturation 100% 12/06/2019 12:27 PM EDT Inhaled Oxygen Concentration - - Weight 88.5 kg (195 lb) 07/01/2022 9:12 AM EDT Height 170.2 cm (5' 7.01 ) 07/01/2022 9:12 AM ED T Body Mass Index 30.53 07/01/2022 9:12 AM EDT Plan of Treatment Upcoming Encounters Date Type Department Care Team (Late st Contact Info) Description 07/17/2025 11:00 AM EDT Office Visit [facility] Neurology [address] [place] [address] Karin Payne, JUAN [address] [facility], 2nd [place] [address] Health Maintenance Due Date Last Done Comments DEPRESSION SCREENING 1998 HEPATITIS C SCREENING 2004 HIV ONE-TIME SCREENING (18-65 YEARS) 2004 PAP SMEAR 04/27/2022 04/27/2019, 03/30, 12/21/2013 SCREENING FOR DIABETES 12/04/2022 12/05/2019 INFLUENZA VACCINE (#1) 2025 , 05/21/2020, 11/09/2018, Additional history exists COVID-19 VACCINE (2024- season) 2025 05/27/2021, 05/06/2021 Adult Td,Tdap Booster 04/02/2031 04/02/2021, 019 SMOKING STATUS SCREENING (Once After 26 Yrs) Completed 01/02/2025 HEPATITIS A VACCINES Aged Out No long er eligible based on patient's age to complete this topic HIB VACCINES Aged Out No longer eligi ble based on patient's age to complete this topic MENINGOCOCCAL VACCINES (ACWY) Aged Out No longer eligible based on patient's age to complete this topic MENINGOCOCCAL VACCINES (B) Aged Out N o longer eligible based on patient's age to complete this topic PNEUMOCOCCAL VACCINES (0-49 years) Aged Out No longer eligible based on patient's age to complete this topic Medical Devices Not on file Procedures Procedure Name Priority Date/Time Associated Diagnosis Comments PAP TEST Routine 04/27/2019 12:00 AM EDT from Last 3 Months or Most Recently Relevant to Health Maintenance Results * Pap Smear (04/27/2019 12:00 AM EDT) 04/27/2019 04/28/2019 10: 35 AM EDT Narrative SEE NARRATIVE - 05/05/2019 11:48 AM EDT [address] [address] Family Physician: Dana Man MD FOREIGN BANKNOTE TELLER Cytology Report FINAL DIAGNOSIS A. PAP SMEAR (SUREPATH) CE: SPECIMEN ADEQUACY: Satisfactory for evaluation; transformation zone present. Evaluation limited by thickness of cellular specimen. INTERPRETATION: NEGATIVE FOR INTRAEPITHELIAL LESION OR MALIGNANCY. Reactive changes. Electronically Signed Out By: MD Margaux Culp CT(ASCP) By his/her signature above, the pathologist listed as making the Final Diagnosis certifies that he/she has personally reviewed this case and confirmed or corrected the diagnosis. The Pap test is a screening test primarily for squamous cancers and precursors and has associated false-negative and false-positive results. New technologies such as liquid-based preparations may decrease but will not eliminate all false-negative results. Regular sampling and follow-up of unexplained clinical signs and symptoms are recommended to minimize false negative results. PROCEDURES/ADDENDA HPV Testing (Requested) Ordered Date: 04/28/2019 A. PAP SMEAR (SUREPATH) CE: Human Papilloma Virus Test Negative for high-risk human papillomavirus types 16, 18, 45 and the Other high risk probe set (Includes 31, 33, 35, 39, 51, 52, 56, 58, 59, 66, 68) by [employer] Onclarity HR-HPV analysis. Clinical correlation is advised. This HPV test was performed at [facility], [address] [place] [address]. This test has been FDA approved for SurePath cervical cytology specimens. The accuracy and precision of this test for all other specimen sources has been verified in the Cytopathology Laboratory of the [facility] and has not been cleared or approved by the U.S. Food and Drug Administration. Clinical correlation is advised. CLINICAL HISTORY Date of Last Menstrual Period: 12/2018 Other Clinical Conditions: Screening Pap Abnormal PAP at Other Lab history of abnormals at outside labs SPECIMEN SOURCE A: PAP SMEAR (SUREPATH) CE Patient Name: FANY RUBIN : 1985 (Age: 33) Sex: F Institution: [facility] Location: [facility] Date of Collection: 04/27/2019 Date of Reported: 05/03/2019 09:29 Results to: Barry Yañez MD, BS us Barry Yañez MD CYTOLOGY ORDERABLES Edited Re sult - Final SEE NARRATIVE from Last 3 Months or Most Recently Relevant to Health Maintenance Insurance [employer] [place] MEDIC[place] [address] [place] [address] [address] [place] [address] [place] [address] MEDICARE PPO BLUE REPLACEMENT [facility] MEDICARE PPO BLUE REPLACEMENT [facility] MEDICARE PPO BLUE REPLACEMENT [facility] MEDICARE PPO BLUE REPLACEMENT Care Teams Manager General Relationship Specialty Start Date End Date Clover Mora NP [address] [place] [address] [email or web address] PCP - General Family Medicine 07/17/20 James Robb MD 12/07/18 Additional Source Comments The information contained in this document represents components of the legal health record. It is not the complete legal health record.[facility]
--- OUTSIDE RECORDS SUMMARY | 2025-07-04 08:07 | XMS_ITS | Encounter Summary ---
Author Organization [facility] Address [address] [place] [address] Phone Care Team Providers Care Tape Cutter Name Role Phone James Robb MD Unavailable [phone] Clover Mora NP Primary Care Provid er Encounter Details Date Type Department Care Team (Late st Contact Info) Description 07/23/2020 Procedure Pass [address] [address] Social History Tobacco Use Types Packs/Day Years [...] Description 07/17/2025 11:00 AM EDT Office Visit [facility] Neurology [address] [place] [address] Karin Payne FNP [address] [facility], 2nd [place] [address] documented as of this encounter Visit Diagnoses Not on filedocumented in this encounter Care Teams Tape Cutter Relationship Specialty Start Date End Date Clover Mora NP [address] [place] [address] [email or web address] PCP - General Family Medicine 07/17/20 James Robb MD 12/07/18 documented as of this encounter Additional Source Comments The information contained in this document represents components of the legal health record. It is not the complete legal health record.[facility]
--- OUTSIDE RECORDS SUMMARY | 2025-07-04 08:07 | XMS_ITS | Encounter Summary ---
Author Organization [facility] Address [address] [facility] [address] [place] [address] Phone Care Team Providers Care Furniture Repair Technician Name Role Phone Sharon Cervantes FEED MANAGER Primary Care Provider James Robb MD Unavailable [phone] Clover Mora NP Primary Care Provid er Encounter Details Date Type Department Care Team (Late st Contact Info) Description 12/28/[address] [facility] Pain Management [address] [facility] [address] [place] [address] [email or web address] Social History Tobacco Use Types Packs/Day Years [...] 07/17/2025 11:00 AM EDT Office Visit [facility] Neurology [address] [place] [address] Karin Payne FNP [address], 2nd floor [place], [place] [phone] [email or web address] documented as of this encounter Visit Diagnoses Not on filedocumented in this encounter Care Teams Furniture Repair Technician Relationship Specialty Start Date End Date Sharon Cervantes NP [address] [place] [address] [email or web address] PCP - General Family Medicine 12/07/18 07/16/20 Clover Mora NP [address] [place] [address] [email or web address] PCP - General Family Medicine 07/17/20 James Robb MD [address] [place] [address] 12/07/18 documented as of this encounter Additional Source Comments The information contained in this document represents components of the legal health record. It is not the complete legal health record.[facility]
--- OUTSIDE RECORDS SUMMARY | 2025-07-04 08:08 | XMS_ITS | Encounter Summary ---
Author Organization [facility] Address [address] [facility] [address] [place] [address] Phone Care Team Providers Care Booking Clerk Name Role Phone Sharon Cervantes FASHION INTERN Primary Care Provider James Robb MD Unavailable [phone] Clover Mora NP Primary Care Provid er Encounter Details Date Type Department Care Team (Late st Contact Info) Description 12/05/2019 Procedure Pass [facility] Emergency Radiology, Main [address], [address] [place] [address] Social History Tobacco Use Types Packs/Day Years [...] 07/17/2025 11:00 AM EDT Office Visit [facility] Neurology [address] [place] [address] Karin Payne, JUAN 15 [facility], 2nd [place] [address] documented as of this encounter Visit Diagnoses Not on filedocumented in this encounter Care Teams Booking Clerk Relationship Specialty Start Date End Date Sharon Cervantes NP [address] [place] [address] [email or web address] PCP - General Family Medicine 12/07/18 07/16/20 Clover Mora NP [address] [place] [address] [email or web address] PCP - General Family Medicine 07/17/20 James Robb MD [address] [place] [address] 12/07/18 documented as of this encounter Additional Source Comments The information contained in this document represents components of the legal health record. It is not the complete legal health record.[facility]
== END 2025-07-03 07:59 | disposition home or self-care (01) ==
LOC: HO.HOSX 07:58
PROVIDERS: Visit Provider Physician Assistant
DX: Q65.89 Other specified congenital deformities of hip (principal); M25.551 Pain in right hip; M25.552 Pain in left hip
CPT/HCPCS: 73521; 99212

== ENCOUNTER 2025-07-03 10:48 | Outpatient (AMB) | payer MEDICARE, SELFPAY ==
--- NOTE | 2025-07-03 11:07 | A.OFFVIS_ITS ---
Vital Signs 07/03/25 11:19 Height 5 ft 5 in Weight 190 lb BMI 31.6 Intake Visit Reasons: New prob-B/L hip pain, Rt>Lt Intake Note: Fany is a 39 year old female who presents today as an established patient, new problem visit to evaluate bilateral hip pain. Patient reports hip pain that has been present for 20+ years. History of hip surgeries with the most recent surgery being a GLORIA for hip dysplasia, states about 10 years ago that was performed at [facility]. She states her pain is located at her hip joint and travels to her back and down her leg. She would like to discuss a hip replacement with Dr. Rocha. Allergies acetaminophen (From Percocet) Allergy (Unknown, Verified 07/03/25 11:10) Itching adhesive Allergy (Unknown, Verified 07/03/25 11:10) Rash hydromorphone Allergy (Unknown, Verified 07/03/25 11:10) Rash nortriptyline Allergy (Unknown, Verified 07/03/25 11:10) Unknown oxycodone (From Percocet) Allergy (Unknown, Verified 07/03/25 11:10) Itching topiramate Adverse Reaction (Unknown, Verified 07/03/25 11:10) Rash HPI HPI New prob-B/L hip pain, Rt>Lt: Details: 39-year-old female presents to the office today for bilateral hip pain. She states her right hip is worse than the left. She has a history of 2 arthroscopic labral repair surgeries on the right and 1 on the left . Also underwent a right hip GLORIA with Dr King . She states both hips dislocated when she was younger and in early 20s she was a runner and played sports. She states the hip slips out and subluxes with daily activities. She feels this is interfering with her ability to perform activities and keep up with her 4-year-old daughter. [facility] Medical History (Updated 10/14/24 @ 13:10 by RIZWAN Nettles) PAOD (peripheral arterial occlusive disease) Hip dysplasia Arthritis Family history of sleep apnea HTN (hypertension) Bilateral hip dysplasia Surgical History H/O arthroscopy of hip History of hip surgery Family History (System 07/03/23 @ 15:00 by Neema Lebron) Father Hypertension Heart disease Mother Migraines Hypertension Sister Migraines Maternal Grandmother Migraines Paternal Grandmother Migraines Social History Are you a primary daycare worker to a significant other at home: No Alcohol intake: current Alcohol intake frequency: holidays/special occasions only Patient Tobacco Use Status: Never used Tobacco Current occupational status: disabled 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 Assessment & Plan Assessment & Plan (1) Bilateral hip dysplasia: Code(s): Q65.89 - Other specified congenital deformities of hip Category: Medical Plan: Given her history of multiple dislocations and hip arthroscopies we will order an MRI of both hips to further evaluate the integrity of the cartilage and surrounding structures. Once the scan is complete we can discuss the next step in her treatment. Orders: Orders XR hip BI w PEL1V Today M25.559 - Pain in unspecified hip MR hip RT wo con Today Q65.89 - Other specified congenital deformities of hip MR hip LT wo con Today Q65.89 - Other specified congenital deformities of hip Coding Level of Care Code New Pt Level 3 (58242) Complex EM visit Add On G2211 Diagnoses Bilateral hip dysplasia Q65.89
[2025-07-03 11:19] VITALS: BMI 31.6
== END 2025-07-03 11:43 | disposition home or self-care (01) ==
LOC: HO.HOS 10:48
PROVIDERS: PCP Nurse Practitioner Family; Visit Provider Physician Assistant
DX: Q65.89 Other specified congenital deformities of hip (principal)
CPT/HCPCS: 99213; G2211

== ENCOUNTER → 2025-07-03 10:49 | Outpatient (BNV) | payer MEDICARE, SELFPAY | PROVIDERS: Visit Provider Radiology Diagnostic Radiology | DX: M16.9 Osteoarthritis of hip, unspecified (principal); M46.1 Sacroiliitis, not elsewhere classified | CPT/HCPCS: 73521 ==